=== PATIENT | male | born 1990 | race African-American/Black ===

== ENCOUNTER 2023-12-27 00:18 | Emergency (ER) | payer OTHER ==
[2023-12-27 00:23] VITALS: BP 117/74; PULSE 72; RESP 18; TEMP 98.1; BMI 34.4
[2023-12-27] MEDS ORDERED: IBUPROFEN 600 MG TABLET (FP) PO ONE (00:36)
[2023-12-27] MEDS ORDERED: LIDOCAINE 4% PATCH TP ONE (00:36)
[2023-12-27] MEDS: IBUPROFEN 600 MG TABLET (FP) PO ONE (00:38)
[2023-12-27] MEDS: LIDOCAINE 4% PATCH TP ONE (00:39)
[2023-12-27] MEDS ORDERED: LIDOCAINE PATCH REMOVAL MC ONE (13:00)
== END 2023-12-27 00:53 | disposition home or self-care (01) ==
LOC: JER 00:18
DX: M54.50 Low back pain, unspecified (principal); V49.50XA Passenger injured in collision with unspecified motor vehicles in traffic accident, initial encounter
CPT/HCPCS: 99283-25